=== PATIENT | male | born 1980 | race Hispanic/Latino ===

== ENCOUNTER 2017-06-15 08:00 | Emergency (ER) | payer OTHER ==
[2017-06-15 08:20] VITALS: BP 132/89
[2017-06-15] MEDS ORDERED: MOTRIN PO ONE (10:32)
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
--- NOTE | 2017-06-15 11:25 | XRay Report ---
RIGHT KNEE: Pain. The bony architecture is intact without evidence of fracture or dislocation. No significant soft tissue abnormality is seen. IMPRESSION: Normal right knee.
== END 2017-06-15 11:15 | disposition home or self-care (01) ==
LOC: ED 08:00
DX: M25.561 Pain in right knee (principal); V49.49XA Driver injured in collision with other motor vehicles in traffic accident, initial encounter; Y92.488 Other paved roadways as the place of occurrence of the external cause; Y93.89 Activity, other specified; Y99.8 Other external cause status